=== PATIENT | female | born 1955 | race Two or more races ===

== ENCOUNTER 2023-10-15 14:42 | Emergency (ER) | payer BC, MEDICAID, OTHER ==
[~2023-10-15] VITALS: Ht 152.4 cm; Wt 75.0 kg
[2023-10-15 15:18] VITALS: BP 147/87; PULSE 78; RESP 18; O2SAT 98
[2023-10-15] MEDS: ONDANSETRON ODT 4 MG TAB PO ONE (15:48)
[2023-10-15] MEDS: HYDROcodone-ACET 10/325MG TAB PO ONE (15:48)
[2023-10-15] MEDS ORDERED: IBUP-1454 PO (20:51)
[2023-10-15] MEDS ORDERED: ACE3T PO (20:51)
== END 2023-10-15 21:13 | disposition home or self-care (01) ==
LOC: EDBD 14:42 → ER 14:42
DX: S16.1XXA Strain of muscle, fascia and tendon at neck level, initial encounter (principal); S20.219A Contusion of unspecified front wall of thorax, initial encounter; S80.02XA Contusion of left knee, initial encounter; S09.8XXA Other specified injuries of head, initial encounter; V89.2XXA Person injured in unspecified motor-vehicle accident, traffic, initial encounter; Y93.89 Activity, other specified; Y92.89 Other specified places as the place of occurrence of the external cause; Y99.8 Other external cause status
CPT/HCPCS: 70486; 71045; 72040; 73562; 99284; Q0162